=== PATIENT | female | born 1985 | race Caucasian/White ===

== ENCOUNTER 2025-07-19 23:14 | Inpatient (IN) | payer MEDICAID ==
[~2025-07-19] VITALS: Ht 157.5 cm; Wt 65.9 kg
[~2025-07-19 23:14] MED LIST changes: -ACETAMINOPHEN 1000MG/100ML 100 ML IV ONE; -BUPIVACAINE HCL/PF 0.5% (5MG/ML) 10ML ONE; -CEFAZOLIN SODIUM 1000MG/VIAL ONE; -DEXAMETHASONE 4MG/ML 1ML VIAL ONE; -FAMOTIDINE 20MG/2ML VIAL IV ONE; -HYDR-4001 MT; -HYDRALAZINE 20MG/ML VIAL IV PRN; -HYDROMORPHONE HCL/PF 1MG/ML INJ ONE; -KETOROLAC 30MG/ML VIAL ONE; -LABETALOL 5MG/ML 4ML INJ IV PRN; -LACTATED RINGERS 1,000 ML IV SCH; -LIDOCAINE HCL 1% 10 MG/ML 10ML VIAL ONE; -MIDAZOLAM HCL 2 MG/2 ML VIAL ONE; -ONDANSETRON HCL 4MG/2ML INJ ONE; -PROPOFOL 200MG/20ML VIAL IV ONE; -SKIN ADHESIVE 0.7 GM EA TOP ONE
[2025-07-20 00:23] LABS: HEMATOCRIT. 36.4 % (36.0-48.0); HEMOGLOBIN. 12.0 g/dL (12.0-16.0); MEAN PLATELET VOLUME 7.9 fl (7.4-10.4); PLATELET 338 x1000/uL (130-400); RED BLOOD CELL COUNT 4.34 mill/uL (4.2-5.4); RED CELL DISTRIBUTION WIDTH 14.5 % (11.6-14.6)
[2025-07-20 00:24] VITALS: O2SAT 98
[2025-07-20 00:33] LABS: CREATININE 0.7 mg/dL (0.6-1.0)
[2025-07-20 00:34] LABS: UREA NITROGEN BLOOD 9 mg/dL (9-23)
[2025-07-20 00:35] LABS: CLARITY URINE CLEAR (CLEAR); COLOR URINE DARK YELLOW (YELLOW); GLUCOSE URINE TRACE (NEGATIVE); KETONES URINE 1+ (NEGATIVE); LEUKOCYTE ESTERASE URINE TRACE (NEGATIVE); NITRITE URINE NEGATIVE (NEGATIVE); OCCULT BLOOD URINE TRACE (NEGATIVE); PH URINE 6.0 (4.5-8.0); PROTEIN URINE 1+ (NEGATIVE); SPECIFIC GRAVITY URINE 1.039 (1.005-1.030); UROBILINOGEN URINE 1.0 E.U./dL (0.2-1.0)
[2025-07-20] MEDS: ONDANSETRON HCL 4MG/2ML INJ IV ONE (01:03)
[2025-07-20] MEDS: SODIUM CHLORIDE 0.9% 1,000 ML IV ONE (01:04)
[2025-07-20] MEDS: MORPHINE SULFATE 4 MG/ML INJ (FOR IV/IM USE) IV ONE (01:04)
[2025-07-20 01:08] LABS: ASPARTATE AMINOTRANSFERASE 56 IU/L (<34); BILIRUBIN DIRECT 0.2 mg/dL (<=3.0); BILIRUBIN TOTAL 0.5 mg/dL (0.1-1.0); PROTEIN TOTAL 7.3 g/dL (6.0-8.3)
[2025-07-20 01:11] LABS: HCG SCREEN NEGATIVE
[2025-07-20 01:59] LABS: BACTERIA URINE 1+; RBC URINE 0-2 /hpf (0-2); SQUAMOUS EPITHELIAL CELL URINE 2+ /lpf (RARE/1+)
[2025-07-20] MEDS ORDERED: IOHEXOL-300 100 ML BOTTLE ONE (02:24)
[2025-07-20] MEDS: CEFTRIAXONE 1GM/50ML 50 ML IV ONE (03:04)
[2025-07-20 04:00] VITALS: BP 116/62; PULSE 64; RESP 18; TEMP 36.2; O2SAT 98
[2025-07-20 04:30] VITALS: BP 116/62; PULSE 65; RESP 18; TEMP 36.1956
[2025-07-20] MEDS ORDERED: NALOXONE HCL 0.4MG/ML VIAL IV PRN (05:00)
[2025-07-20] MEDS: DEXT 5% WATER + KCL 20MEQ/L 1,000 ML IV SCH (05:57)
[2025-07-20] MEDS: MORPHINE SULFATE 10 MG/ML INJ (NOT FOR IM USE) IV PRN (05:57)
[2025-07-20] MEDS: PIPERACILLIN/TAZO 3.375G/50ML 50 ML IV SCH (05:57)
[2025-07-20] MEDS ORDERED: PNEUMOCOCCAL 20-VAL CONJ-DIP CRM 0.5ML IM ONE (06:30)
[2025-07-20 08:00] VITALS: BP 106/64; PULSE 56; RESP 18; TEMP 36.2; O2SAT 99
[2025-07-20 10:11] LABS: BAND% 2.0 % (1.0-6.0); LYMPHOCYTES % MANUAL 8.0 % (20.0-60.0); MONOCYTES % MANUAL 2.0 % (2.0-8.0); NEUTROPHILS % MANUAL 88.0 % (45.0-75.0); PLATELET ESTIMATE NORMAL
[2025-07-20 12:00] VITALS: BP 109/61; PULSE 64; RESP 18; TEMP 36.6; O2SAT 98
[2025-07-20 20:00] VITALS: BP 139/65; PULSE 64; RESP 18; TEMP 36.3; O2SAT 98
[2025-07-21] VITALS: BP 114/68; PULSE 63; RESP 18; TEMP 36.3; O2SAT 99
[2025-07-21 04:00] VITALS: BP 135/80; PULSE 57; RESP 18; TEMP 36.2; O2SAT 98
[2025-07-21] MEDS: ONDANSETRON HCL 4MG/2ML INJ IV PRN (05:43)
[2025-07-21 08:00] VITALS: BP 109/50; PULSE 61; RESP 18; TEMP 36.4; O2SAT 99
[2025-07-21 12:00] VITALS: BP 118/68; PULSE 60; RESP 18; TEMP 36.5; O2SAT 99
[2025-07-21] MEDS ORDERED: HYDR-4001 MT (15:21)
[2025-07-21 16:00] VITALS: BP 119/66; PULSE 62; RESP 17; TEMP 36.5; O2SAT 98
[2025-07-21 20:00] VITALS: BP_SYST 120; BP_SYST 125; BP_DIAS 68; BP_DIAS 78; PULSE 65; PULSE 67; RESP 18; TEMP 36.6; O2SAT 98
== END 2025-07-21 20:28 | disposition home or self-care (01) | DRG 252 ==
LOC: ER 07-20 00:47 → 6EST 07-20 03:00 → EDBEDREQ 07-20 03:04 → EDBEDREQTM 07-20 03:04 → ENRESERV 07-20 03:37
PROVIDERS: ADMIT Internal Medicine; ATTEND Internal Medicine
DX: K91.89 Other postprocedural complications and disorders of digestive system (principal); K56.7 Ileus, unspecified; Z90.49 Acquired absence of other specified parts of digestive tract; Y83.8 Other surgical procedures as the cause of abnormal reaction of the patient, or of later complication, without mention of misadventure at the time of the procedure; Y82.8 Other medical devices associated with adverse incidents; Y92.89 Other specified places as the place of occurrence of the external cause
CPT/HCPCS: 36415; 74177; 80048; 80076; 81003; 84703; 85025; 96374; 96375; 99285; A4606; J0696; J2270; J2405; J2543; J7030; J7060; Q9967

== ENCOUNTER → 2025-07-19 | Day surgery (SDC) | payer MEDICAID ==
[~2025-07-19] VITALS: Ht 172.7 cm; Wt 78.5 kg
[~2025-07-19] MED LIST: ACETAMINOPHEN 1000MG/100ML 100 ML IV ONE; BUPIVACAINE HCL/PF 0.5% (5MG/ML) 10ML ONE; CEFAZOLIN SODIUM 1000MG/VIAL ONE; DEXAMETHASONE 4MG/ML 1ML VIAL ONE; FAMOTIDINE 20MG/2ML VIAL IV ONE; HYDR-4001 MT; HYDRALAZINE 20MG/ML VIAL IV PRN; HYDROMORPHONE HCL/PF 1MG/ML INJ ONE; KETOROLAC 30MG/ML VIAL ONE; LABETALOL 5MG/ML 4ML INJ IV PRN; LACTATED RINGERS 1,000 ML IV SCH; LIDOCAINE HCL 1% 10 MG/ML 10ML VIAL ONE; MIDAZOLAM HCL 2 MG/2 ML VIAL ONE; MONT-46 PO; ONDANSETRON HCL 4MG/2ML INJ ONE; PROPOFOL 200MG/20ML VIAL IV ONE; SKIN ADHESIVE 0.7 GM EA TOP ONE
[2025-07-19 07:16] LABS: UCG KIT LOT# 0000982192; UCG SCREEN NEGATIVE
[2025-07-19 07:17] LABS: UCG KIT EXPIRATION DATE 03/11/2027
[2025-07-19] MEDS: HYDROMORPHONE HCL/PF 1MG/ML INJ IV PRN (09:36)
[2025-07-19 10:05] VITALS: BP 115/61; PULSE 72; RESP 19
[2025-07-19] MEDS: ONDANSETRON HCL 4MG/2ML INJ IV PRN (11:01)
== END | disposition home or self-care (01) ==
LOC: OR 06:20
PROVIDERS: ATTEND Surgery
DX: K80.10 Calculus of gallbladder with chronic cholecystitis without obstruction (principal); J45.30 Mild persistent asthma, uncomplicated; Z79.899 Other long term (current) drug therapy; Z98.890 Other specified postprocedural states
CPT/HCPCS: 47562; 88304; 81025; J1885; J0665; J0690; J1100; J1308; J2003; J2250; J2405; J2704; J1171; J7030; A4217; J0131